=== PATIENT | female | born 1970 | race Caucasian/White ===

== ENCOUNTER 2021-07-08 14:40 | Emergency (ER) | payer OTHER ==
--- NOTE | 2021-07-08 15:12 | ED Physician Documentation ---
PD HPI LOWER EXT INJURY - Stated complaint Stated Complaint: KNEE PX - Chief complaint Chief Complaint: Ext Problem - History obtained from History obtained from: Patient - History of Present Illness PD HPI LOW EXT INJURY LOCATION: Left, Knee Type of injury: Fall, Twist Where injury occurred: Other (store) Timing - onset: Today Timing - duration: Hours Timing - details: Abrupt onset, Still present Improved by: Rest, Immobilization Worsened by: Moving, Palpating Associated symptoms: Swelling. No: Weakness, Numbness Contributing factors: No: Anticoagulated Similar symptoms before: Has not had sx before Recently seen: Not recently seen - Additional information Additional information: Previously well 51-year-old female was walking out of [facility] when she stepped down off a curb and twisted her knee. She states that she felt her knee go several different directions she is unsure exactly what happened but now has pain especially on the medial joint line. She feels when she is walking it feels like it might give way on her. Review of Systems Constitutional: denies: Fever Nose: denies: Congestion Throat: denies: Sore throat Respiratory: denies: Cough GI: denies: Vomiting Musculoskeletal: reports: Extremity pain, Joint swelling, Pain with weight bearing. denies: Neck pain, Back pain Neurologic: denies: Generalized weakness, Focal weakness, Numbness PD PAST MEDICAL HISTORY - Present Medications Home Medications: Ambulatory Orders Medication Instructions Recorded Confirmed HYDROcod/ACETAM 5/325 [Gardena 5/325] 1 - 2 tablet PO Q6H PRN #14 tablet 07/08/21 - Allergies Allergies/Adverse Reactions: Allergies Allergy/AdvReac Type Severity Reaction Status Date / Time No Known Drug Allergies Allergy Verified 07/08/21 15:00 PD ED PE NORMAL - Vitals Vital signs reviewed: Yes (normal ) - General General: Alert and oriented X 3, No acute distress, Well developed/nourished - HEENT HEENT: Atraumatic, PERRL, EOMI - Respiratory Respiratory: No respiratory distress - Derm Derm: Normal color, Warm and dry, No rash - Extremities Extremities: No deformity, Other (small joint effusion is palpable. there is tenderness to the medial joint line and opening with valgus forces is mild. lateral joint line without abnormality and the remainder of the ligaments are stable to testing. ) - Neuro Neuro: Alert and oriented X 3, box maker 2-12 intact, No motor deficit, No sensory deficit, Normal speech Eye Opening: Spontaneous Motor: Obeys Commands Verbal: Oriented GCS Score: 15 - Psych Psych: Normal mood, Normal affect Results - Vitals Vitals: Vital Signs - 24 hr 07/08/21 07/08/21 14:56 16:32 Temperature 36.9 C 37.1 C Heart Rate 86 71 Respiratory 16 16 Rate Blood Pressure 125/75 124/74 O2 Saturation 99 96 Oxygen O2 Source Room air - Rads (name of study) left knee Radiology: Prelim report reviewed (Impression: No acute bony abnormality seen. Likely remote proximal fibular fracture. Small joint effusion.), EMP read indepedently, See rad report PD MEDICAL DECISION MAKING - ED course Complexity details: considered differential, d/w patient ED course: 51-year-old female has sprained her left knee stepping down off of a curb. She has sprained her medial collateral ligament and we have placed her into a knee immobilizer. I have not indicated the patient she may need to wear this up to 2 months and at least 10 to 14 days. Departure - Departure Disposition: 01 Home, Self Care Clinical Impression: Left knee sprain Qualifiers: Encounter type: initial encounter Involved ligament of knee: medial collateral ligament Qualified Code(s): S83.412A - Sprain of medial collateral ligament of left knee, initial encounter Condition: Stable Instructions: ED Sprain Knee Collateral Ligaments Follow-Up: Pippa Pineda ARNP [Primary Care Provider] - Prescriptions: HYDROcod/ACETAM 5/325 [Gardena 5/325] 1 - 2 tablet PO Q6H PRN #14 tablet PRN Reason: Pain Comments: Pat today it looks like you have sprained the left knee specifically the medial collateral ligament and this is best treated with a knee immobilizer to hold the knee where the joint is supposed to be so that the ligament can heal together tightly. This can take some time to heal and a follow-up with your primary is indicated in the next 2 weeks. I have E scribed some [place] to [facility] in [place].
--- NOTE | 2021-07-08 15:57 | XRAY Report ---
PROCEDURE: Knee 4 View LT INDICATIONS: Trauma TECHNIQUE: 4 views of the left knee(s) were acquired. COMPARISON: None. FINDINGS: Bones: No acute fractures or dislocations. Remote appearing bone irregularity can be seen involving the proximal fibula, which is likely related to a remote fracture. No suspicious bony lesions. Soft tissues: There is a small joint effusion. No suspicious soft tissue calcifications. IMPRESSION: No acute bony abnormality can be seen. Likely remote proximal fibular fracture. Small joint effusion. If it would be helpful for clinical management decision making, please consider a dedicated, schedule d knee MRI for further evaluation (assuming that there is no contraindication). Reviewed by: Massimo Pierson MD on 07/08/2021 2:55 PM [facility] Approved by: Massimo Pierson MD on 07/08/2021 2:55 PM [facility] Station ID: [id number]
[2021-07-08 16:41] VITALS: BP 124/74
== END 2021-07-08 17:09 | disposition home or self-care (01) ==
LOC: ED 14:40
DX: S83.412A Sprain of medial collateral ligament of left knee, initial encounter (principal); W10.1XXA Fall (on)(from) sidewalk curb, initial encounter
CPT/HCPCS: 99282; 99283

== ENCOUNTER 2023-01-07 08:52 | Emergency (ER) | payer OTHER ==
[2023-01-07] MEDS ORDERED: oxyCODONE 5 MG TABLET PO STA (09:42)
--- NOTE | 2023-01-07 10:02 | XRAY Report ---
PROCEDURE: Wrist 4 View LT INDICATIONS: fall TECHNIQUE: 3 views of the wrist were acquired. COMPARISON: None. FINDINGS: Bones: Intra-articular fracture of the radial styloid. Possible additional fracture of the ulna. Soft tissues: No suspicious soft tissue calcifications or masses. IMPRESSION: Intra-articular fracture of the radial styloid. Possible distal ulnar fracture. Reviewed by: Felix Fam on 01/07/2023 10:00 AM PDT Approved by: Felix Fam on 01/07/2023 10:00 AM PDT Station ID: [id number]
--- NOTE | 2023-01-07 10:19 | ED Physician Documentation ---
PD HPI UPPER EXT INJURY - Stated complaint Stated Complaint: LT WRIST INJ - Chief complaint Chief Complaint: Trauma Ext - History obtained from History obtained from: Patient - Additonal information Additional information: Patient is a 52-year-old female presenting for evaluation of left wrist pain that started after a fall this morning. Patient reports a slip and fall while she was outside. Denies hitting her head or LOC. Does not take a blood thinner. No prior injuries to left wrist. Denies pain elsewhere. 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 HEENT: None Derm: None - Present Medications Home Medications: Ambulatory Orders Medication Instructions Recorded Confirmed HYDROcod/ACETAM 5/325 [[place] 5/325] 1 - 2 tablet PO Q6H PRN #14 tablet 07/08/21 Oxycodone HCl/Acetaminophen 1 each PO Q6H PRN #14 tablet 01/07/23 [Percocet 5-325 mg Tablet] - Allergies Allergies/Adverse Reactions: Allergies Allergy/AdvReac Type Severity Reaction Status Date / Time No Known Drug Allergies Allergy Verified 07/08/21 15:00 - Social History Does the pt smoke?: No Smoking Status: Never smoker PD ED PE NORMAL - General General: Alert and oriented X 3, No acute distress, Well developed/nourished - HEENT HEENT: Atraumatic - Neck Neck: Supple, no meningeal sign, No bony TTP, C-Spine cleared by NEXUS criteria - Cardiac Cardiac: RRR, Strong equal pulses - Respiratory Respiratory: No respiratory distress - Derm Derm: Warm and dry - Extremities Extremities: Other (Tenderness and swelling to left wrist, no tenderness more proximally in the forearm or to elbow, no tenderness to left hand. Strong radial pulse) - Neuro Neuro: No motor deficit, No sensory deficit Results - Vitals Vitals: Vital Signs - 24 hr 01/07/23 01/07/23 09:05 10:26 Temperature 36.6 C 36.6 C Heart Rate 80 81 Respiratory 20 19 Rate Blood Pressure 142/93 H 133/88 H O2 Saturation 97 98 Oxygen O2 Source Room air PD Medical Decision Making - ED course Complexity details: reviewed results, re-evaluated patient, d/w patient ED course: Patient is a 52-year-old female presenting for evaluation of left wrist injury after a slip and fall. No head injury. Neurovascularly intact. X-ray which I reviewed shows a distal radius fracture. Patient was placed into a sugar-tong splint and given instructions to follow-up with orthopedic surgery. She is counseled on concerning symptoms to return for. Departure - Departure Disposition: 01 Home, Self Care Clinical Impression: Left wrist fracture Condition: Stable Instructions: ED Fx Wrist General Follow-Up: Nelson Mora MD [Provider Admit Priv/Credential] - Prescriptions: Oxycodone HCl/Acetaminophen [Percocet 5-325 mg Tablet] 1 each PO Q6H PRN #14 tablet PRN Reason: pain Comments: You have a fracture to your left wrist. You need close follow-up with the orthopedic surgeon. I have sent a prescription for narcotic pain medication to [facility] in [place]. Please keep the splint clean and dry. Return to the ER if it gets wet or you have any new concerns. I am prescribing a short course of narcotic pain medication for you. These are potentially dangerous and addictive medications that should be used carefully. These medications may constipate you. Take an [id number] stool softener (docusate) twice daily with plenty of water while taking these medications. If you go 24 hours without a bowel movement, take [id number] miralax, per package instructions. Do not drink or drive while taking these medications. If you received narcotic or sedating medications while in the emergency department, do not drive for 24 hours. Store this medication in a safe, secure place and out of reach of children. It is a violation of federal law to give or sell this medication to another person or to use in a manner other than prescribed. The ED will not refill narcotic prescriptions, including prescriptions lost or stolen. To dispose of unwanted medications: 1. [facility] at [address] in [place] has a medication drop box. They accept prescription medications (in pill form) Saturday through Saturday 9:00 a.m. to 5:00 p.m. 2. The [facility] [employer] accepts prescription medications (in pill form only) for disposal year round. Call for more information. 3. Contact the [facility] for the next [facility] sponsored prescription drug collection event. , [phone], or [phone]; Note that many narcotic pain relievers also contain Tylenol/acetaminophen. Please ensure that your total dose of acetaminophen from all sources does not exceed 3 g (3000 mg) per day. Forms: PCP List Discharge Date/Time: 01/07/23 10:26
[2023-01-07 10:36] VITALS: BP 133/88; O2SAT 98
== END 2023-01-07 10:26 | disposition home or self-care (01) ==
LOC: ED 08:52
DX: S52.512A Displaced fracture of left radial styloid process, initial encounter for closed fracture (principal); W19.XXXA Unspecified fall, initial encounter; Y92.89 Other specified places as the place of occurrence of the external cause
CPT/HCPCS: 73110; 99283; A9270

== ENCOUNTER 2023-01-16 08:00 | Outpatient (CLI) | payer OTHER ==
--- NOTE | 2023-01-15 11:25 | XRAY Report ---
PROCEDURE: Wrist 3 View LT INDICATIONS: LEFT WRIST FRACTURE TECHNIQUE: 3 views of the wrist were acquired. COMPARISON: Left wrist radiographs 01/07/2023. FINDINGS: Bones: Mildly impacted comminuted intra-articular fracture of the distal radius is again seen with u nchanged alignment. No new osseous abnormality identified. Soft tissues: Soft tissue edema seen surrounding the wrist. IMPRESSION: Comminuted intra-articular fracture of the distal radius is redemonstrated with unchanged alignment. Reviewed by: Bonifacio Stauffer MD on 01/15/2023 11:24 AM PDT Approved by: Bonifacio Stauffer MD on 01/15/2023 11:24 AM PDT Station ID: [id number]
== END 2023-01-16 23:59 | disposition home or self-care (01) ==
LOC: DI.WOS 08:00
PROVIDERS: ATTEND Orthopaedic Surgery Sports Medicine
DX: S52.572D Other intraarticular fracture of lower end of left radius, subsequent encounter for closed fracture with routine healing (principal)

== ENCOUNTER 2023-02-04 08:00 | Outpatient (CLI) | payer OTHER ==
--- NOTE | 2023-02-04 20:28 | XRAY Report ---
PROCEDURE: Wrist 3 View LT INDICATIONS: LEFT WRIST FRACTURE TECHNIQUE: 3 views of the wrist were acquired. COMPARISON: X-ray left wrist, 01/15/2023 and 01/07/2023. FINDINGS: Bones: There is a comminuted, intra-articular fracture involving the distal radial metaphysis. Frac ture lines less distinct consistent with healing. Alignment is unchanged. No suspicious bony lesions. Soft tissues: No suspicious soft tissue calcifications or masses. IMPRESSION: Healing distal radial metaphyseal fracture. Reviewed by: Suzette John MD on 02/04/2023 8:27 PM PDT Approved by: Suzette John MD on 02/04/2023 8:27 PM PDT Station ID: [id number]
== END 2023-02-04 23:59 | disposition home or self-care (01) ==
LOC: DI.WOS 08:00
PROVIDERS: ATTEND Physician Assistant Surgical
DX: S52.515D Nondisplaced fracture of left radial styloid process, subsequent encounter for closed fracture with routine healing (principal)

== ENCOUNTER 2023-02-21 08:00 | Outpatient (CLI) | payer OTHER ==
--- NOTE | 2023-02-21 17:58 | XRAY Report ---
PROCEDURE: Wrist 3 View LT INDICATIONS: LEFT WRIST FRACTURE TECHNIQUE: 3 views of the wrist were acquired. COMPARISON: X-ray wrist 02/04/2023 FINDINGS: Bones: Stable alignment of comminuted and impacted distal radial intra-articular fracture. Soft tissues: No suspicious soft tissue calcifications or masses. IMPRESSION: Stable alignment and appearance of distal radial fracture. Reviewed by: Katalina Garcia MD on 02/21/2023 5:56 PM PDT Approved by: Katalina Garcia MD on 02/21/2023 5:56 PM PDT Station ID: [id number]
== END 2023-02-21 23:59 | disposition home or self-care (01) ==
LOC: DI.WOS 08:00
PROVIDERS: ATTEND Physician Assistant Surgical
DX: S52.572A Other intraarticular fracture of lower end of left radius, initial encounter for closed fracture (principal)